=== PATIENT | female | born 1990 | race Two or more races ===

== ENCOUNTER 2023-06-05 12:16 | Day surgery (SDC) | payer OTHER ==
[~2023-06-05 12:16] MED LIST: ACETAMINOOPHEN-1 TAB PO; CIPRO500 MG PO; DICLOFENAC POTA50 MG PO; XOPENEX0.63 MG/3 IH
[2023-06-05] MEDS ORDERED: ZITHROMAX TRI-500 MG PO (18:32)
== END 2023-06-05 20:35 | disposition home or self-care (01) ==
LOC: CIR.AMB 12:16
PROVIDERS: ATTEND Obstetrics & Gynecology
DX: N84.0 Polyp of corpus uteri (principal); N92.0 Excessive and frequent menstruation with regular cycle; Z20.822 Contact with and (suspected) exposure to COVID-19; Z91.013 Allergy to seafood